=== PATIENT | female | born 2000 ===

== ENCOUNTER 2023-02-05 16:39 | Emergency (ER) | payer OTHER, MEDICAID, SELFPAY ==
[2023-02-05 16:45] VITALS: BP 112/58; BP 148/80; PULSE 112; PULSE 98; RESP 20; TEMP 37.6; O2SAT 98; O2SAT 99; BMI 20.8
--- OUTSIDE RECORDS SUMMARY | 2023-02-05 17:18 | XMS_ITS | Continuity of Care Document ---
Author Name Unknown Organization [facility] Address [address] [place] [address]- Care Team Providers Care Pie Maker Machine Name Role Phone Torrie White MD Primary Care Physician [place] [facility] [id number] Date(s): 05/30/21 - 06/29/21 [facility] [address] [place], [place] [address] Attending Physician: Meaghan Mccloud Admitting Physician: Meaghan Mccloud Referring Physician: AdmtrMeaghan Allergies, Adverse Reactions, Alerts Substance Reaction Severity Status NKA Active Immunizations Given and Recorded Vaccine Date Status Refusal Reason Hepatitis A Pediatric Vaccine 01/12/16 Given Hepatitis A Pediatric Vaccine 01/01/15 Given Typhoid Vaccine, Inactivated 01/01/15 Given Medications azithromycin 500 mg oral tablet 1 tablet = 500 mg, By Mouth, Daily, for severe diarrhea during travel, # 3 tablet, 0 Refills, Maintenance, 01/12/16 18:12:32 Start Date: 01/12/16 Stop Date: 01/15/16 Status: Ordered Diflucan 150 mg oral tablet 1 tablet = 150 mg, By Mouth, Once, # 1 tablet, 1 Refills, Soft Stop, 09/13/19 0:44:55 EST, Tablet Start Date: 09/13/19 Status: Ordered Problem List Condition Effective Dates Status Health Status Inform ant Advice or immunization for travel(Confirmed) Active
--- OUTSIDE RECORDS SUMMARY | 2023-02-05 17:18 | XMS_ITS | Continuity of Care Document ---
Author Name Unknown Organization [facility] Address [address] [place] [address]- Care Team Providers Care Block Tester Name Role Phone Torrie White MD Primary Care Physician [place] [facility] [place] [id number] Date(s): 10/13/22 - 11/12/22 [facility] [address] [place], [place] [address] Attending Physician: Meaghan Mccloud Admitting Physician: AdmMeaghan schulte Referring Physician: AdmtrMeaghan Allergies, Adverse Reactions, Alerts No Known Allergies Immunizations Given and Recorded Vaccine Date Status Refusal Reason Hepatitis A Pediatric Vaccine 01/12/16 Given Hepatitis A Pediatric Vaccine 01/01/15 Given Typhoid Vaccine, Inactivated 01/01/15 Given Medications azithromycin 500 mg oral tablet 1 tablet = 500 mg, By Mouth, Daily, for severe diarrhea during travel, # 3 tablet, 0 Refills, Maintenance, 01/12/16 18:12:32 Start Date: 01/12/16 Stop Date: 01/15/16 Status: Ordered fluconazole 150 mg oral tablet 1 tablet = 150 mg, By Mouth, Once, Repeat dose if still having symptoms in 72 hours, # 2 tablet, 0 Refills, Soft Stop, 08/10/22 12:56:00 EST, Tablet, [id number], Partial fill upon patient request if the prescription is for a schedule... Start Date: 08/10/22 Status: Ordered fluconazole 150 mg oral tablet 1 tablet = 150 mg, By Mouth, Once, # 1 tablet, 0 Refills, Soft Stop, 10/14/22 15:52:00 EST, Tablet,[facility][id number], Partial fill upon patient request if the prescription is for a schedule II opioid drug., 165.1, cm, 10/13/22 12:44:00 EST,... Start Date: 10/14/22 Status: Ordered Problem List Condition Confirmation Course Effective Dates Status Health St [facility] Informant Advice or immunization for travel Confirmed Active Patient Care team information Care Team Personnel Name: Torrie White MD Position: S Primary Care Physician Member Role: PCP Address: Address: [address] [place] [address]- Care Team Related Persons Name: PATEL SERNA Address: home [address] [place] [address] Name: JONATHAN SERNA Address: [address] [address]
--- OUTSIDE RECORDS SUMMARY | 2023-02-05 17:18 | XMS_ITS | Continuity of Care Document ---
Author Name Unknown Organization [facility] ter Address [address] [place] [address]- Care Team Providers Care House Designer Name Role Phone Torrie White DO Primary Care Physician Unava ilable [place] [facility] [place] 09/12/19 - 09/13/[address] [address]- [facility] Encounter Diagnosis Lorraine vaginitis(Final) - 09/13/19 Pyelonephritis(Final) - 09/13/19 Discharge Disposition: A-D/C Home Attending Physician: Ana Ybarra MD Admitting Physician: Ana Ybarra MD Referring Physician: Not on Staff, Referring MD Allergies, Adverse Reactions, Alerts Substance Reaction Severity [...] EST, Tablet Start Date: 09/13/19 Status: Ordered Keflex monohydrate 500 mg oral capsule 1 capsule = 500 mg, By Mouth, 4 times a day, for 7 days, # 28 capsule, 0 Refills, Acute 09/20/19 0:44:47 EST, 09/13/19 0:44:47 EST, Capsule Start Date: 09/13/19 Stop Date: 09/20/19 Status: Ordered Problem List Condition Effective Dates Status Health Status Inform ant Advice or immunization for travel(Confirmed) Active Results Orders for Microbiology Reports Name Date Wet Prep 09/12/19 Microbiology Reports TEST:Wet Prep STATUS:Auth (Verified) BODY SITE: SOURCE:VAGINA COLLECTED DATE/TIME:09/13/19 12:16 AM Wet Prep SPECIMEN DESCRIPTION : VAGINAL SPECIMEN SPECIAL REQUESTS : NONE DIRECT EXAM : 2+ WHITE BLOOD CELLS 2+ YEAST NO TRICHOMONAS OBSERVED NO CLUE CELLS OBSERVED REPORT STATUS : FINAL 09/13/2019 Vital Signs Most recent to oldest [Reference Range]: 1 2 3 Weight 55.4 kg (09/13/19 12:39 AM) 55.4 kg (09/12/19 10:30 PM) 55.4 kg (09/12/19 7:46 PM) Oxygen Saturation [94-100 %] 100 % (09/13/19 12:39 AM) 100 % (09/12/19 10:30 PM) 100 % (09/12/19 7:46 PM) Pulse Rate [55-90 bpm] 70 bpm (09/13/19 12:39 AM) 97 bpm *H* (09/12/19 10:30 PM) 96 bpm *H* (09/12/19 7:46 PM) Blood Pressure [90-138/55-84 mm Hg] 97/51mm Hg (09/13/19 12:39 AM) 100/63mm Hg (09/12/19 10:30 PM) 102/60mm Hg (09/12/19 7:46 PM) Respiratory Rate [16-30 br/min] 16 br/min (09/13/19 12:39 AM) 18 br/min (09/12/19 10:30 PM) 20 br/min (09/12/19 7:46 PM) Temperature [96.8-100.4 DegF] 98.4 DegF (09/12/19 10:30 PM) 98.4 DegF (09/12/19 7:46 PM) 98.5 DegF (09/12/19 5:23 PM) Mode of Delivery (Oxygen) Room air (09/13/19 12:39 AM) Room air (09/12/19 10:30 PM) Room air (09/12/19 7:46 PM) Blood pressure sites Arm, left (12/12/19 10:30 PM) Arm, left (09/12/19 7:46 PM) Arm, right (09/12/19 5:23 PM) Temperature Route Oral (09/12/19 10:30 PM) Oral (09/12/19 7:46 PM) Oral (09/12/19 5:23 PM) Weight Obtained Via Standing scale (09/12/19 5:23 PM)
--- OUTSIDE RECORDS SUMMARY | 2023-02-05 17:18 | XMS_ITS | Continuity of Care Document ---
Author Name Unknown Organization [facility] Address [address] [place] [address]- Care Team Providers Care Hotel Housekeeper Name Role Phone Torrie White MD Primary Care Physician [phone] [place] [facility] [place] 09/04/21 - 10/04/21 [facility] [address] [place] [address]- Attending Physician: Meaghan Mccloud Admitting Physician: Meaghan Mccloud Referring Physician: Meaghan Mccloud Allergies, Adverse Reactions, Alerts Substance Reaction Severity [...] # 1 tablet, 0 Refills, Soft Stop, 08/09/21 10:57:00 EST, Tablet,[facility] #[id number], Partial fill upon patient request if the prescription is for a schedule II opioid drug., 165.1, cm, 08/03/21 9:21:00 EDT,... Start Date: 08/09/21 Status: Ordered Diflucan 150 mg oral tablet 1 tablet = 150 mg, By Mouth, Once, May repeat additional dose in 3 days if no improvement., # 2 tablet, 0 Refills, Soft Stop, 08/25/21 9:36:00 EST, Tablet, [facility][id number], Partial fill upon patient request if the prescription is for a danitza... Start Date: 08/25/21 Status: Ordered Problem List Condition Effective Dates Status Health Status Inform ant Advice or immunization for travel(Confirmed) Active
--- OUTSIDE RECORDS SUMMARY | 2023-02-05 17:18 | XMS_ITS | Continuity of Care Document ---
Author Name Unknown Organization [facility] Address [address] [place] [address]- Care Team Providers Care Thickener Operator Name Role Phone Torrie White MD Primary Care Physician [phone] En[place] [facility] [place] Date(s): 07/22/21 - 07/29/21 [facility] [address] [place] [address]- Attending Physician: Zaida Baxter MD Referring Physician: Torrie White MD Allergies, Adverse Reactions, Alerts Substance Reaction [...] ant Advice or immunization for travel(Confirmed) Active Vital Signs Most recent to oldest [Reference Range]: 1 Height 165.10 cm (07/22/21 10:21 AM) Oxygen Saturation [94-100 %] 100 % (07/22/21 10:21 AM) Pulse Rate [55-90 bpm] 58 bpm (07/22/21 10:21 AM) Blood Pressure [90-138/55-84 mm Hg] 91/5 0mm Hg (07/22/21 10:21 AM) Respiratory Rate [16-30 br/min] 18 br/mi n (07/22/21 10:21 AM) Temperature [96.8-100.4 DegF] 98.0 DegF (07/22/21 10:21 AM) Mode of Delivery (Oxygen) Room air (07/22/21 10:21 AM) Blood pressure sites Arm, left (07/22/21 10:21 AM) Temperature Route Temporal (07/22/21 10:21 AM)
--- OUTSIDE RECORDS SUMMARY | 2023-02-05 17:18 | XMS_ITS | Continuity of Care Document ---
Author Name Unknown Organization [facility] Address [address] [place] [address]- Care Team Providers Care Overhauler Bus Truck Name Role Phone Torrie White MD Primary Care Physician En[place] [facility] [place] [place] [id number] Date(s): 11/22/22 - 12/22/22 [facility] [address] [place], [place] [address] Attending Physician: Meaghan Mccloud Admitting Physician: Meaghan Mccloud Referring Physician: Meaghan Mccloud Allergies, Adverse Reactions, Alerts No Known Allergies [...] Refills, Soft Stop, 08/10/22 12:56:00 EST, Tablet, [facility] #[id number], Partial fill upon patient request if the prescription is for a schedule... Start Date: 08/10/22 Status: Ordered fluconazole 150 mg oral tablet 1 tablet = 150 mg, By Mouth, Once, # 1 tablet, 0 Refills, Soft Stop, 10/14/22 15:52:00 EST, Tablet,[facility] #[id number], Partial fill upon patient request if the [...] Care Physician Member Role: PCP Address: Address: [address] [place] [address] [place] [address]- Care Team Related Persons Name: PATEL SERNA Address: [place] [address] Name: JONATHAN SERNA Address: [place] [address]
--- OUTSIDE RECORDS SUMMARY | 2023-02-05 17:18 | XMS_ITS | Continuity of Care Document ---
Author Name Unknown Organization [facility] Address [address] [place] [address]- Care Team Providers Care Beach Expert Name Role Phone Torrie White MD Primary Care Physician [phone] En[place] [facility] [place] Date(s): 05/30/21 - 06/06/21 [facility] [address] [place], [place] [address] Attending Physician: Angelica Chase MD Allergies, Adverse Reactions, Alerts Substance Reaction [...] oldest [Reference Range]: 1 Height 165.10 cm (05/30/21 8:25 AM) Oxygen Saturation [94-100 %] 98 % (05/30/21 8:25 AM) Pulse Rate [55-90 bpm] 55 bpm (05/30/21 8:25 AM) Blood Pressure [90-138/55-84 mm Hg] 99/5 1mm Hg (05/30/21 8:25 AM) Respiratory Rate [16-30 br/min] 18 br/mi n (05/30/21 8:25 AM) Temperature [96.8-100.4 DegF] 98.0 DegF (05/30/21 8:25 AM) Mode of Delivery (Oxygen) Room air (05/30/21 8:25 AM) Blood pressure sites Arm, right (05/30/21 8:25 AM) Temperature Route Temporal (05/30/21 8:25 AM)
--- OUTSIDE RECORDS SUMMARY | 2023-02-05 17:18 | XMS_ITS | Continuity of Care Document ---
Author Name Unknown Organization [facility] Address [address] [place] [address]- Care Team Providers Care Sergeant At Arms Name Role Phone Torrie White MD Primary Care Physician En[place] [facility] [place] Date(s): 09/04/21 - 09/11/21 [facility] [address] [place] [address]- Attending Physician: Zaida Baxter MD Referring Physician: [...] 0 Refills, Soft Stop, 08/09/21 10:57:00 EST, Tablet,[facility] #[id number], Partial fill upon patient request if the prescription is for a schedule II opioid drug., 165.1, cm, 08/03/21 9:21:00 EDT,... Start Date: 08/09/21 Status: Ordered Diflucan 150 mg oral tablet 1 tablet = 150 mg, By Mouth, Once, May repeat additional dose in 3 days if no improvement., # 2 tablet, 0 Refills, Soft Stop, 08/25/21 9:36:00 EST, Tablet, [facility] #[id number], Partial fill upon patient request if the prescription is for a danitza... Start Date: 08/25/21 Status: Ordered Problem List Condition Effective Dates Status Health Status Inform ant Advice or immunization for travel(Confirmed) Active Vital Signs Most recent to oldest [Reference Range]: 1 Height 165.10 cm (09/04/21 8:09 AM) Oxygen Saturation [94-100 %] 100 % (09/04/21 8:09 AM) Pulse Rate [55-90 bpm] 59 bpm (09/04/21 8:09 AM) Blood Pressure [90-138/55-84 mm Hg] 96/5 6mm Hg (09/04/21 8:09 AM) Temperature [96.8-100.4 DegF] 98.9 DegF (09/04/21 8:09 AM) Mode of Delivery (Oxygen) Room air (09/04/21 8:09 AM) Blood pressure sites Arm, right (09/04/21 8:09 AM) Temperature Route Temporal (09/04/21 8:09 AM)
--- OUTSIDE RECORDS SUMMARY | 2023-02-05 17:18 | XMS_ITS | Continuity of Care Document ---
Author Name Unknown Organization [facility] Address [address] [place] [address]- Care Team Providers Care Validation Scientist Name Role Phone Torrie White MD Primary Care Physician [phone] [facility] [id number] Date(s): 08/02/22 - 09/01/22 [facility] [address] [place], [place] [address] Attending Physician: Meaghan Mccloud Admitting Physician: [...] Refills, Soft Stop, 08/10/22 12:56:00 EST, Tablet, [facility] #[id number], Partial fill upon patient request if the prescription is for a schedule... Start Date: 08/10/22 Status: Ordered Problem List Condition Confirmation Course Effective Dates Status Health St [facility] Informant Advice or immunization for travel Confirmed Active Patient Care team information Care Team Personnel Name: Torrie White MD Position: S Primary Care Physician Member Role: PCP Address: Address: [address] [place] [address] [place] [address]- [place] Care Team Related Persons Name: PATEL SERNA Address: [address] [address] Name: JONATHAN SERNA Address: home [address] [place] [address]
--- OUTSIDE RECORDS SUMMARY | 2023-02-05 17:18 | XMS_ITS | Continuity of Care Document ---
Author Name Unknown Organization [facility] Address [address] [place] [address]- Care Team Providers Care Ditch Repairer Name Role Phone Torrie White MD Primary Care Physician Encounter [facility] [id number] Date(s): 08/02/22 - 08/09/22 [facility] [address] [place] [address]- Encounter Diagnosis Ruptured tympanic membrane(Discharge Diagnosis) - 08/02/22 Vaginal discharge(Discharge Diagnosis) - 08/02/22 Attending Physician: Nic Laguna DO Referring Physician: Torrie White MD Allergies, Adverse Reactions, Alerts No Known Allergies [...] 0 Refills, Soft Stop, 08/09/21 10:57:00 EST, Tablet,[facility] #[id number], Partial fill upon patient request if the prescription is for a schedule II opioid drug., 165.1, cm, 08/03/21 9:21:00 EDT,... Start Date: 08/09/21 Status: Ordered Diflucan 150 mg oral tablet 1 tablet = 150 mg, By Mouth, Once, May repeat additional dose in 3 days if no improvement., # 2 tablet, 0 Refills, Soft Stop, 08/25/21 9:36:00 EST, Tablet, [facility] #[id number], Partial fill upon patient request if the prescription is for a danitza... Start Date: 08/25/21 Status: Ordered Problem List Condition Confirmation Course Effective Dates Status Health St [facility] Informant Advice or immunization for travel Confirmed Active Diagnosis Diagnosis Type Effective Dates Health Status Cl inical Service Informant Ruptured tympanic membrane Discharge Diagnosis 08/02/22 Vaginal discharge Discharge Diagnosis 08/02/22 Vital Signs Most recent to oldest [Reference Range]: 1 Height 165.10 cm (08/02/22 9:53 AM) Oxygen Saturation [94-100 %] 100 % (08/02/22 9:53 AM) Pulse Rate [55-90 bpm] 60 bpm (08/02/22 9:53 AM) Blood Pressure [90-138/55-84 mm Hg] 102/ 55mm Hg (08/02/22 9:53 AM) Respiratory Rate [16-30 br/min] 16 br/mi n (08/02/22 9:53 AM) Temperature [96.8-100.4 DegF] 98.7 DegF (08/02/22 9:53 AM) Mode of Delivery (Oxygen) Room air (08/02/22 9:53 AM) Blood pressure sites Arm, right (08/02/22 9:53 AM) Temperature Route Temporal (08/02/22 9:53 AM) Note * Amber Oliva MA: PERFORM, SIGN, VERIFY Event Display: Patient Education/Instruction Authored Date: [facility] Clinical Summary Name WENDIE SERNA Age 21 Years 2000 PCP Christopher CHAVARRIA, Torrie PCP Visit Date 08/02/2022 09:37:00 Patient Instructions Go to ENT now, at [address] [facility], [address] Additional Instructions: Scheduled Appointments?? Future Appointments ?No Future Appointments Scheduled Follow-Up Instructions ?? Diagnosis Other specified noninflammatory disorders of vagina; Unspecified perforation of tympanic membrane, unspecified ear Medications: Please continue your medications until treatment is completed or stopped by your provider. Discuss any questions related to medications with your provider. Medications to Continue with No Changes These medications were not printed or sent to your pharmacy Azithromycin (azithromycin 500 mg oral tablet) 1 tab(s) Oral Daily for 3 Days. for severe diarrhea during travel. Refills: 0. Next Dose: Fluconazole (Diflucan 150 mg oral tablet) 1 tab(s) Oral once. May repeat additional dose in 3 days if no improvement.. Refills: 0. Next Dose: Fluconazole (Diflucan 150 mg oral tablet) 1 tab(s) Oral once. Refills: 0. Next Dose: Allergy Info:?? NKA Medications Given This Visit Future Orders ?Vaginosis Vaginitis Panel (BV, CV/TV)? Order Date:08/02/22?- Complete on or after?08/02/22 Vital Signs Height 165.10 cm Weight BMI Blood Pressure 102 mm Hg/55 mm Hg Temperature 98.7 DegF Pulse Rate 60 bpm Respiratory Rate 16 br/min 02 Sat Mode of Delivery 100 %/Room air You can now view a summary of your hospital visit from the comfort of your home through a free online portal called [employer]. [employer] is a website that allows you to securely view your medical information including discharge summary, medications and follow-up visits. ??You can alsosend a secure electronic message to your doctor???s office to request appointments, renew medications or just ask a question. You can enroll at [email or web address] or register during your next office visit. Disclaimer:?? The information provided is of a general nature and is intended to be used in conjunction with the recommendations and advice of your health care practitioner. ??Every effort has been made to ensure that the information provided is accurate and complete at the time it is provided to you however, as your needs change, or, as new ??information becomes available, different or additional instructions may be required. If you have questions, please consult with your primary care provider or pharmacist, as appropriate. ??This information is not intended to serve as substitution for assessment and evaluation by a qualified health care provider. If you do not have a primary care provider, you may find a [facility] provider by calling [facility] [employer] TV Link at [phone]. For information about the plan of care including goals and instructions for your diagnosis, please see the patient education orders section of this document. Patient Education Materials?? The content of this educational material or handout may have been modified, supplemented, or adapted from its original content and format to support your individualized medical care. Additional Provider Instructions: * Cynthia GALLAGHER, Bhumi: PERFORM, SIGN, VERIFY Event Display: Patient Education/Instruction Authored Date: [id number] [facility] Clinical Summary Name WENDIE SERNA Age 21 Years 2000 PCP Christopher CHAVARRIA, Torrie PCP Visit Date 08/02/2022 09:37:00 Patient Instructions Go to ENT now, at [address] [place] [address], [facility] Additional Instructions: Scheduled Appointments?? Future Appointments ?No Future Appointments Scheduled Follow-Up Instructions ?? Diagnosis Medications: Please continue your medications until treatment is completed or stopped by your provider. Discuss any questions related to medications with your provider. Medications to Continue with No Changes These medications were not printed or sent to your pharmacy Azithromycin (azithromycin 500 mg oral tablet) 1 tab(s) Oral Daily for 3 Days. for severe diarrhea during travel. Refills: 0. Next Dose: Fluconazole (Diflucan 150 mg oral tablet) 1 tab(s) Oral once. May repeat additional dose in 3 days if no improvement.. Refills: 0. Next Dose: Fluconazole (Diflucan 150 mg oral tablet) 1 tab(s) Oral once. Refills: 0. Next Dose: Allergy Info:?? NKA Medications Given This Visit Future Orders ?No future orders Vital Signs Height 165.10 cm Weight BMI Blood Pressure 102 mm Hg/55 mm Hg Temperature 98.7 DegF Pulse Rate 60 bpm Respiratory Rate 16 br/min 02 Sat Mode of Delivery 100 %/Room air You can now view a summary of your hospital visit from the comfort of your home through a free online portal called [employer]. [employer] is a website that allows you to securely view your medical information including discharge summary, medications and follow-up visits. ??You can alsosend a secure electronic message to your doctor???s office to request appointments, renew medications or just ask a question. You can enroll at [email or web address] or register during your next office visit. Disclaimer:?? The information provided is of a general nature and is intended to be used in conjunction with the recommendations and advice of your health care practitioner. ??Every effort has been made to ensure that the information provided is accurate and complete at the time it is provided to you however, as your needs change, or, as new ??information becomes available, different or additional instructions may be required. If you have questions, please consult with your primary care provider or pharmacist, as appropriate. ??This information is not intended to serve as substitution for assessment and evaluation by a qualified health care provider. If you do not have a primary care provider, you may find a [facility] provider by calling [facility] u[employer] TV Link at [phone]. For information about the plan of care including goals and instructions for your diagnosis, please see the patient education orders section of this document. Patient Education Materials?? The content of this educational material or handout may have been modified, supplemented, or adapted from its original content and format to support your individualized medical care. Patient Care team information Care Team Personnel Name: Torrie White MD Position: [facility] Primary Care Physician Member Role: PCP Address: Address: [address] [place] [address]- Care Team Related Persons Name: PATEL SERNA Address: home [address] [place] [address] Name: JONATHAN SERNA Address: home [address] [place] [address]
--- OUTSIDE RECORDS SUMMARY | 2023-02-05 17:18 | XMS_ITS | Continuity of Care Document ---
Author Name Unknown Organization [facility] Address [address] [place] [address]- Care Team Providers Care Green Feed Attendant Name Role Phone Torrie White MD Primary Care Physician [id number] Date(s): 08/03/21 - 08/10/21 [facility] [address] [place] [address]- Encounter Diagnosis Vaginal discharge(Discharge Diagnosis) - 08/03/21 Attending Physician: Cynthia RIPRAP WORKER, Bhumi Referring Physician: Torrie White MD Allergies, Adverse [...] 0 Refills, Soft Stop, 08/09/21 10:57:00 EST, Tablet,[facility] #[id number], Partial fill upon patient request if the prescription is for a schedule II opioid drug., 165.1, cm, 08/03/21 9:21:00 EDT,... Start Date: 08/09/21 Status: Ordered Problem List Condition Effective Dates Status Health Status Inform ant Advice or immunization for travel(Confirmed) Active Diagnosis Diagnosis Type Effective Dates Health Status Cl inical Service Informant Vaginal discharge Discharge Diagnosis 08/03/21 Vital Signs Most recent to oldest [Reference Range]: 1 Height 165.10 cm (08/03/21 9:21 AM) Oxygen Saturation [94-100 %] 100 % (08/03/21 9:21 AM) Pulse Rate [55-90 bpm] 56 bpm (08/03/21 9:21 AM) Blood Pressure [90-138/55-84 mm Hg] 94/5 8mm Hg (08/03/21 9:21 AM) Respiratory Rate [16-30 br/min] 18 br/mi n (08/03/21 9:21 AM) Temperature [96.8-100.4 DegF] 98.6 DegF (08/03/21 9:21 AM) Mode of Delivery (Oxygen) Room air (08/03/21 9:21 AM) Blood pressure sites Arm, left (08/03/21 9:21 AM) Temperature Route Temporal (08/03/21 9:21 AM)
--- OUTSIDE RECORDS SUMMARY | 2023-02-05 17:18 | XMS_ITS | Continuity of Care Document ---
Author Name Unknown Organization [facility] Address [address] [place] [address]- Care Team Providers Care Meter Attendant Name Role Phone Torrie White MD Primary Care Physician Encounter [facility] Date(s): 10/13/22 - 10/20/22 [facility] [address] [place] [address]- Encounter Diagnosis Acute vaginitis(Discharge Diagnosis) - 10/13/22 Attending Physician: Nic Laguna DO Referring Physician: [...] Refills, Soft Stop, 08/10/22 12:56:00 EST, Tablet, [facility] #[id number], Partial fill upon patient request if the prescription is for a schedule... Start Date: 08/10/22 Status: Ordered fluconazole 150 mg oral tablet 1 tablet = 150 mg, By Mouth, Once, # 1 tablet, 0 Refills, Soft Stop, 10/14/22 15:52:00 EST, Tablet,[facility] #[id number], Partial fill upon patient request if the prescription is for a schedule II opioid drug., 165.1, cm, 10/13/22 12:44:00 EST,... Start Date: 10/14/22 Status: Ordered Problem List Condition Confirmation Course Effective Dates Status Health St atus Informant Advice or immunization for travel Confirmed Active Diagnosis Diagnosis Type Effective Dates Health Status Cl inical Service Informant Acute vaginitis Discharge Diagnosis 10/13/22 Vital Signs Most recent to oldest [Reference Range]: 1 Height 165.10 cm (10/13/22 12:44 PM) Oxygen Saturation [94-100 %] 100 % (10/13/22 12:44 PM) Pulse Rate [55-90 bpm] 99 bpm *H* (10/13/22 12:44 PM) Blood Pressure [90-138/55-84 mm Hg] 104/ 58mm Hg (10/13/22 12:44 PM) Respiratory Rate [16-30 br/min] 16 br/mi n (10/13/22 12:44 PM) Temperature [96.8-100.4 DegF] 98.8 DegF (10/13/22 12:44 PM) Mode of Delivery (Oxygen) Room air (10/13/22 12:44 PM) Blood pressure sites Arm, left (10/13/22 12:44 PM) Temperature Route Temporal (10/13/22 12:44 PM) Note * Mariangel Moreira: PERFORM, SIGN, VERIFY Event Display: Patient Education/Instruction Authored Date: [id number] [facility] *[facility] Clinical Summary Name WENDIE SERNA Age 22 Years 2000 PCP Christopher CHAVARRIA, Torrie PCP Visit Date 10/13/2022 12:41:00 Additional Instructions: Scheduled Appointments?? Future Appointments ?No Future Appointments Scheduled Follow-Up Instructions ?? Diagnosis Acute vaginitis Medications: Please continue your medications until treatment is completed or stopped by your provider. Discuss any questions related to medications with your provider. Medications to Continue with No Changes These medications were not printed or sent to your pharmacy Azithromycin (azithromycin 500 mg oral tablet) 1 tab(s) Oral Daily for 3 Days. for severe diarrhea during travel. Refills: 0. Next Dose: Fluconazole (fluconazole 150 mg oral tablet) 1 tab(s) Oral once. Repeat dose if still having symptoms in 72 hours. Refills: 0. Next Dose: Allergy Info:?? NKA Medications Given This Visit Future Orders ?Chlamydia/N. Gonorrhoeae TMA (NAAT)? Order Date:10/13/22?- Complete on or after?10/13/22 ?Vaginosis Vaginitis Panel (BV, CV/TV)? Order Date:10/13/22?- Complete on or after?10/13/22 Vital Signs Height 165.10 cm Weight BMI Blood Pressure 104 mm Hg/58 mm Hg Temperature 98.8 DegF Pulse Rate 99 bpm Respiratory Rate 16 br/min 02 Sat Mode of Delivery 100 %/Room air You can now view a summary of your hospital visit from the comfort of your home through a free online portal called [employer]. Archipelago is a website that allows you to securely view your medical information including discharge summary, medications and follow-up visits. ??You can alsosend a secure electronic message to your doctor???s office to request appointments, renew medications or just ask a question. You can enroll at [email or web address] or register during your next office visit. [...] primary care provider, you may find a [facility] provider by calling [facility] at [phone]. For information about the plan of care [...] Team Personnel Name: Torrie White MD Position: [facility] Primary Care Physician Member Role: PCP Address: Address: [address] [place] [address] [place] [address]- Care Team Related Persons Name: PATEL SERNA Address: home [address] [place] [id number] Name: JONATHAN SERNA Address: [address] [address]
--- OUTSIDE RECORDS SUMMARY | 2023-02-05 17:18 | XMS_ITS | Continuity of Care Document ---
Author Name Unknown Organization [facility] Address [address] [place] [address]- Care Team Providers Care Geophysical Drafter Name Role Phone Torrie White MD Primary Care Physician [phone] Encounter [facility] Date(s): 08/25/21 - 09/01/21 [facility] [address] [place] [address]- Attending Physician: Zaida Baxter MD Referring Physician: [...] Stop, 08/09/21 10:57:00 EST, Tablet,[facility] #[id number], Partial fill upon patient request if the prescription is for a schedule II opioid drug., 165.1, cm, 08/03/21 9:21:00 EDT,... Start Date: 08/09/21 Status: Ordered Diflucan 150 mg oral tablet 1 tablet = 150 mg, By Mouth, Once, May repeat additional dose in 3 days if no improvement., # 2 tablet, 0 Refills, Soft Stop, 08/25/21 9:36:00 EST, Tablet, [facility] #[id number], Partial fill upon patient request if the prescription is for a danitza... Start Date: 08/25/21 Status: Ordered Problem List Condition Effective Dates Status Health Status Inform ant Advice or immunization for travel(Confirmed) Active Vital Signs Most recent to oldest [Reference Range]: 1 Height 165.10 cm (08/25/21 9:12 AM) Oxygen Saturation [94-100 %] 100 % (08/25/21 9:12 AM) Pulse Rate [55-90 bpm] 74 bpm (08/25/21 9:12 AM) Blood Pressure [90-138/55-84 mm Hg] 98/6 1mm Hg (08/25/21 9:12 AM) Temperature [96.8-100.4 DegF] 99.0 DegF (08/25/21 9:12 AM) Mode of Delivery (Oxygen) Room air (08/25/21 9:12 AM) Blood pressure sites Arm, left (08/25/21 9:12 AM) Temperature Route Temporal (08/25/21 9:12 AM)
--- OUTSIDE RECORDS SUMMARY | 2023-02-05 17:18 | XMS_ITS | Continuity of Care Document ---
Author Name Unknown Organization [facility] ter Address [address] [place] [id number]- Care Team Providers Care Roll Or Tape Edge Machine Operator Name Role Phone Torrie White DO Primary Care Physician Unava ilable Encounter [facility] Date(s): 11/18/19 - 11/18/[address] [address]- [facility] Attending Physician: Torrie White DO Allergies, Adverse Reactions, Alerts Substance Reaction Severity [...]
--- OUTSIDE RECORDS SUMMARY | 2023-02-05 17:18 | XMS_ITS | Continuity of Care Document ---
Author Name Unknown Organization [facility] ter Address [address] [place] [address]- Care Team Providers Care Pigment Making Supervisor Name Role Phone Torrie White DO Primary Care Physician Gabbi ilable Encounter [facility] [place] [place] Date(s): 10/19/19 - 10/26/[address] [address]- [facility] Attending Physician: Dev Cook MD Allergies, Adverse Reactions, Alerts Substance Reaction [...] Advice or immunization for travel(Confirmed) Active Results Microbiology Reports TEST:Urine Culture STATUS:Auth (Verified) BODY SITE: SOURCE:URINE COLLECTED DATE/TIME:10/19/19 10:30 AM Urine Culture SPECIMEN DESCRIPTION : URINE SPECIAL REQUESTS : NONE CULTURE : NO GROWTH REPORT STATUS : FINAL 10/20/2019
[2023-02-05 17:47] LABS: COVID-19 Test Negative (Negative); IDNOW Serial# BCCEAD1C
--- NOTE | 2023-02-05 18:16 | ED_ITS ---
HPI - Psych General Chief Complaint: Psychiatric Symptoms Stated Complaint: SEC 12 BY CPD, THREATENED TO HARM SELF W/KNIFE Time Seen by Provider: 02/05/23 17:38 Source: patient Mode of arrival: ambulatory Limitations: no limitations History of Present Illness HPI Narrative: 22-year-old female non on past psych history presents to the ED for argument with boyfriend and holding a knife and threatened to kill herself. Patient states she denta her boyfriend broke up with her and she pulled a knife. Patient states she had no plans of hurting herself but just wanted make a statement. Patient's Section 12 brought by ED to the hospital. Patient denies ever being admitted for psych. Related Data Previous Rx's Medication Instructions Recorded nitrofurantoin 100 mg PO Q12H 7 days #14 caps 02/05/23 monohydrate/macrocrystals 100 mg capsule (Macrobid) Allergies Allergy/AdvReac Type Severity Reaction Status Date / Time No Known Allergies Allergy Verified 02/05/23 17:40 Review of Systems Review of Systems: breakup. held knife to herself Yes all other systems are reviewed and are negative [facility] Social History Social History Alcohol intake: never Use of substances other than those prescribed or required for medical reasons: No Any prior treatment program specific to substance use: No Advance Directives: No Advance Directives Information Provided: Yes Healthcare Proxy: No Guardian: No Physical Exam Vital Signs: Vital Signs: Last Vital Signs Temp 99.7 F 02/05/23 16:45 Pulse 98 02/05/23 16:45 Resp 20 02/05/23 16:45 BP 112/58 L 02/05/23 16:45 Pulse Ox 99 02/05/23 16:45 O2 Del Method Room Air 02/05/23 16:45 BMI result Body Mass Index 20.8 Const: General: cooperative, healthy appearing, comfortable, no acute distress, well developed, alert, awake and Physically active Orientation/consciousness: oriented to person, oriented to place, oriented to time and patient oriented x3 HEENT: Head: Yes normal to inspection, Yes No palpable skull fracture present, Yes normocephalic, Yes atraumatic and No abrasion Eyes: General: appearance normal, both eyes and all related structures Neck: Neck: Yes normal visual inspection, Yes full ROM, Yes no lymphadenopathy, Yes no meningeal signs, Yes trachea midline, Yes supple, No anterior neck swelling and No tender Chest: Chest palpation & inspection: normal inspection of the chest and normal palpation of entire chest wall Resp: Effort & Inspection: normal respiratory effort and able to speak in complete sentences Auscultation: clear to auscultation bilaterally Cardio: Jugular venous distension: no JVD Heart sounds: S1 normal heart sound present and S2 normal heart sound present GI: Inspection: Yes normal to inspection and No abdominal wall ecchymosis Palpation (GI): Soft to palpation, not firm, nontender, no guarding and not rigid : General: No CVA tenderness and Yes no CVA tenderness Back/Spine/Pelvis: Back: no CVA tenderness, No CVA tenderness and No back tenderness Skin: General skin exam: no rashes or lesions noted and elasticity normal Neuro: General: oriented to person, oriented to place, oriented to time, patient oriented x3, gait normal, tone normal, moves all extremities, Normal light touch and pain sensation, no meningeal signs, no focal motor deficits, CN's II-XI intact bilaterally and normal sensation to monofilament Extrem: General: Yes normal to inspection and Yes full ROM Psych: Appearance: grossly normal, well kempt and not disheveled Course Course Course Narrative: Labs ordered crisis consult placed for Reevaluation(s) Reevaluation #1: Patient refused lab draw. UA shows positive . Mild UTI. Patient was informed of positive . Patient will follow-up with a OBGYN. Care team consulted Silverio evaluated patient and states patient not need psych inpatient. He spoke with patient's father and they feel comfortable patient being discharged. Patient is not suicidal or homicidal. Father lives with patient and will watch patient. Patient is, alert oriented x3. Patient will follow-up with OBGYN woman services. Time: 20:02 Medical Decision Making Medical Decision Making MDM Narrative: 22-year-old female presents to the ED for mental breakdown after break-up with a boyfriend. Patient pulled a knife to make a statement but has no plans of hurting herself. Patient presently not suicidal homicidal. Patient found to be and was informed. Patient denies any abdominal pain, dysuria, hematuria, flank pain. Patient informed to follow-up with OBGYN services. Care team consulted John evaluate patient and recommend patietn can be discharge. Patient has good safety discharge plan. Father lived to her and will watch her. Differential Diagnosis Differential Diagnoses: The differential diagnosis associated with the presentation includes (Suicidal, depression, homicidal,) Admission/Observation Consideration of admission/observation: Escalation of care including admission/observation considered Consult Healthcare Provider Management of the patient was discussed with: Soybean Grower (Care Team) Lab Data MDM Lab Attestation statement: I reviewed the patient's lab results. Labs: Lab Results 02/05/23 02/05/23 02/05/23 Range/Units 17:08 18:14 18:14 Urine Color Yellow Urine Appearance Cloudy Urine pH 6.5 (5.0-9.0) Ur Specific [place] 1.020 (1.005-1.025) Urine Protein 30 (1+) H (Neg-Trace) mg/dL Urine Glucose (UA) Negative (Negative) mg/dL Urine Ketones Trace (Negative) mg/dL Urine Blood Negative (Negative) Urine Nitrite Negative (Negative) Ur Leukocyte Esterase Trace H (Negative) Urine RBC 3-5 H (0-2) /HPF Urine WBC 0-5 (0-5) /HPF Ur Squamous Epith Cells 3-5 (0-2) /HPF Urine Bacteria Trace (None Seen) Hyaline Casts 3-5 (0-2) /LPF Urine Test POSITIVE H (NEGATIVE) Urine Opiates Screen (Not Detect) Urine Fentanyl Screen (Not Detect) Ur Barbiturates Screen (Not Detect) Ur Phencyclidine Scrn (Not Detect) Ur Amphetamines Screen (Not Detect) U Benzodiazepines Scrn (Not Detect) Urine Cocaine Screen (Not Detect) U Marijuana (THC) Screen (Not Detect) COVID-19 (VIOLETA) Negative (Negative) COVID-19 Clin Com See Note 02/05/23 Range/Units 18:14 Urine Color Urine Appearance Urine pH (5.0-9.0) Ur Specific [place] (1.005-1.025) Urine Protein (Neg-Trace) mg/dL Urine Glucose (UA) (Negative) mg/dL Urine Ketones (Negative) mg/dL Urine Blood (Negative) Urine Nitrite (Negative) Ur Leukocyte Esterase (Negative) Urine RBC (0-2) /HPF Urine WBC (0-5) /HPF Ur Squamous Epith Cells (0-2) /HPF Urine Bacteria (None Seen) Hyaline Casts (0-2) /LPF Urine Test (NEGATIVE) Urine Opiates Screen Not Detected (Not Detect) Urine Fentanyl Screen Not Detected (Not Detect) Ur Barbiturates Screen Not Detected (Not Detect) Ur Phencyclidine Scrn Not Detected (Not Detect) Ur Amphetamines Screen Not Detected (Not Detect) U Benzodiazepines Scrn Not Detected (Not Detect) Urine Cocaine Screen Not Detected (Not Detect) U Marijuana (THC) Screen POSITIVE H (Not Detect) COVID-19 (VIOLETA) (Negative) COVID-19 Clin Com Prescription Management I considered prescription management with: Antibiotic Discharge Plan Discharge Clinical Impression: , UTI (urinary tract infection), Adjustment disorder Patient Disposition: Home, Self-Care Instructions: (ED), Urinary Tract Infection in Women (ED), Anxiety (ED) Additional Instructions: You will be discharged back home. Return to the ED immediately for any suicidal/homicidal ideation, depression, auditory/visual hallucinations, abdominal pain, vaginal bleeding, nausea, vomiting, flank pain, fever, chills, or any other concerning symptoms. Please follow-up with primary care provider. Follow-up with therapist Prescriptions: New nitrofurantoin monohyd/m-cryst [Macrobid] 100 mg capsule 100 mg PO Q12H 7 Days Qty: 14 0RF Rx Instructions: must administer with a meal/food Referrals: [facility] Women's Services [Provider Group] () Stand Alone Forms: Work/School Release Interventions: [place]-Suicide Risk Severity Scale Last Done: 02/05/23 17:59 ED Discharge Assessment Last Done: 02/05/23 20:15 Discharge Date/Time: 02/05/23 20:16 Print Language: Danish
--- NOTE | 2023-02-05 18:45 | MHC.EDTECH ---
Multiple attempts made to have pt agree to have blood drawn with no success. Pt father and nurse attempted multiple times too. Provider made aware.
[2023-02-05 18:51] LABS: Appearance Urine Cloudy; Color Urine Yellow; Glucose Urine UA Negative (Negative); Leukocyte Esterase Urine Trace (Negative); Nitrite Urine Negative (Negative); PH 6.5 (5.0-9.0); UMIC TRIGGER UACC YES; Urine Blood Negative (Negative); Urine Ketones Trace mg/dL (Negative); Urine Protein 30 (1+) mg/dL (Neg-Trace)
[2023-02-05 18:52] LABS: UPreg QC Valid YES; Urine Pregnancy POSITIVE (NEGATIVE)
[2023-02-05 18:53] LABS: Bacteria Urine Trace (None Seen); WBC Urine 0-5 /HPF (0-5)
[2023-02-05 19:05] LABS: Amphetamine Screen Urine Not Detected (Not Detect); Barbiturates, Urine Not Detected (Not Detect); Benzodiazepines Screen Urine Not Detected (Not Detect); Cannabinoid Screen Urine POSITIVE (Not Detect); Cocaine Screen Urine Not Detected (Not Detect); Opiate Screen Urine Not Detected (Not Detect); Phencyclidine Screen Urine Not Detected (Not Detect)
[2023-02-05 19:19] LABS: Fentanyl, urine Not Detected (Not Detect)
== END 2023-02-05 20:16 | disposition home or self-care (01) ==
PROVIDERS: Emergency Provider Student in an Organized Health Care Education/Training Program
DX: O23.40 Unspecified infection of urinary tract in pregnancy, unspecified trimester (principal); R45.851 Suicidal ideations; F43.20 Adjustment disorder, unspecified; Z20.822 Contact with and (suspected) exposure to COVID-19; Z20.828 Contact with and (suspected) exposure to other viral communicable diseases; Z79.899 Other long term (current) drug therapy
CPT/HCPCS: 80307; 81001; 81025; 87635; 99284; S9485